=== PATIENT | female | born 1950 | race Caucasian/White ===

== ENCOUNTER 2017-02-19 16:18 | Inpatient (IN) | payer MEDICARE, OTHER ==
[~2017-02-19] VITALS: Ht 167.6 cm; Wt 87.7 kg
--- NOTE | ~2017-02-19 | OR ---
PATIENT'S NAME: DEBORAH MARIA [facility] AGE: 67 Y [address] ROOM: [address] [place], [place] [address] LOCATION: GPCU ADMIT DATE: 02/19/2017 OR/Procedure Report DISCHARGE DATE: 03/03/2017 FAMILY PHYSICIAN: Ken Shankar MD ATTENDING PHYSICIAN: Guillaume Munguia SURGEON: Adrian Handy DO CARDIO TECH: DATE OF PROCEDURE: 02/27/2017 PREOPERATIVE DIAGNOSIS: Loculated hemothorax status post trauma. POSTOPERATIVE DIAGNOSIS: Loculated hemothorax status post trauma with possible empyema. PROCEDURE PERFORMED: Left thoracoscopy with conversion to left thoracotomy with decortication of left lower lobe. BRIEF HISTORY: Mrs. Maria is a 67-year-old white female who fell from the ladder on 02/19. She has broken multiple ribs, and at the time of the trauma, had a hemopneumothorax. A chest tube was placed. This has since been removed and then replaced again for what was felt to be residual hemothorax. This chest tube has not drained any fluid. Yet, there are obvious changes on the x- ray concerning for hemothorax. Dr. Sanderson and I have discussed this and felt it to be probably a loculated versus clotted hemothorax, and she has been brought to the operative suite today for evacuation of this. DESCRIPTION OF PROCEDURE: She was intubated with a dual-lumen endotracheal tube, placed in the lateral decubitus position for left thoracoscopy. Previous chest tube was removed prior to sterilely prepping and draping the area. She was then sterilely prepped and draped without difficulty. A new incision was created, and we entered the pleural space under direct vision. Finger sweep did yield significant adhesions, most of which we were able to break up with blunt dissection. Thoracoscope was placed. A thickened amount of somewhat cloudy and bloody fluid was encountered. Specimen was sent for culture. Dense adhesive process was ongoing, and I could not clear this with accessory instrumentation. Therefore, I proceeded with creating a thoracotomy incision approximately 2 fingerbreadths below the scapular tip and dissecting down through the muscular layers with electrocautery. We entered the pleural space in the fifth intercostal space. Multiple rib fractures were encountered and palpated. There was dense trapping of the left lower lobe. This was freed with decortication. A pocket of fluid again was encountered posteriorly. Both fluid and peel were sent for microbiologic and histologic sampling. The lower lobe was freed entirely and had much better expansion. Limited decortication of the upper lobe was also carried out at the lingular segment. Copious amounts of saline irrigation were used to irrigate the PATIENT'S NAME: DEBORAH MARIA [facility] AGE: 67 Y [address] ROOM: [place] [address] LOCATION: GPCU ADMIT DATE: 02/19/2017 OR/Procedure Report DISCHARGE DATE: 03/03/2017 FAMILY PHYSICIAN: Ken Shankar MD ATTENDING PHYSICIAN: Guillaume Munguia pleural space. Two chest tubes were brought through separate stab incisions and secured to the chest wall. The intercostal incision was then closed with 3 [id number] #1 Ethibond. Muscular layers closed with running 0 Vicryl, fascia with 2-0 Vicryl, and skin with 4-0 Monocryl. The patient tolerated the procedure well and was extubated and transferred to the recovery room in stable condition. DO MELISSA FRAZIER/mc /[id number] d: 03/06/17 1208 t: 03/07/17 1203, OPERATIVE SUMMARY
--- NOTE | ~2017-02-19 | OR ---
PATIENT'S NAME: DEBORAH SINGH [facility] AGE: 67 Y [address] ROOM: [place] [address] LOCATION: [facility] ADMIT DATE: 02/19/2017 OR/Procedure Report DISCHARGE DATE: FAMILY PHYSICIAN: DAKOTA MILLARD MD ATTENDING PHYSICIAN: Guillaume MUNGUIA SURGEON: Guillaume Munguia MD FIELD CONSULTANT: DATE OF PROCEDURE: 02/19/2017 PREOPERATIVE DIAGNOSIS: Left tension pneumothorax. POSTOPERATIVE DIAGNOSIS: Left tension pneumothorax. PROCEDURE PERFORMED: Insertion of chest tube. ANESTHESIA: Lidocaine 2% without epinephrine. INDICATION: The patient is a 67-year-old female who was up on a ladder when she fell, resulting in multiple broken ribs and a left tension pneumothorax. The tension pneumothorax was approximately 20%. The patient had some drop in her saturations as well requiring oxygen, and that pushed me toward the decision that a chest tube should be inserted. DESCRIPTION OF PROCEDURE: Risks and benefits were discussed with the patient, and consent was obtained. The procedure and sufficient anesthesia was obtained. sedation was obtained with Versed and morphine. The left chest was prepped and draped in the usual sterile fashion. 1% lidocaine without epinephrine was infused. An incision was made over the fifth intercostal space just below the rib. The clamp was used to dissect into the subcutaneous tissue, and the chest wall was entered without difficulty. A gush of air was immediately evacuated with some minor small amount of blood. A 20- Singaporean chest tube was inserted without difficulty and secured in place using 0 nylon suture. The chest tube was then draped with Xeroform gauze followed by a sterile gauze to protect this procedure. The patient's procedure was without complication. The patient tolerated well. A postprocedure chest x- ray revealed it to be in good position. GUILLAUME MUNGUIA MD CC/modl PATIENT'S NAME: DEBORAH SINGH [facility] AGE: 67 Y [address] ROOM: [place] [address] LOCATION: [facility] ADMIT DATE: 02/19/2017 OR/Procedure Report DISCHARGE DATE: FAMILY PHYSICIAN: DAKOTA MILLARD MD ATTENDING PHYSICIAN: Guillaume MUNGUIA /[id number] d: 02/20/17 1629 t: 03/26/17 1525, OPERATIVE SUMMARY
--- NOTE | ~2017-02-19 | HP ---
PATIENT'S NAME: DEBORAH SINGH [facility] AGE: 67 Y [address] ROOM: [place] [address] LOCATION: GPCU ADMIT DATE: 02/19/2017 History & Physical DISCHARGE DATE: 03/03/2017 FAMILY PHYSICIAN: Ken Shankar MD ATTENDING PHYSICIAN: Guillaume Munguia DATE OF SERVICE: 1. Hemopneumothorax. HISTORY: The patient is a 67-year-old female, who was working on a ladder trimming some branches from a tree, when apparently she cut one of the branches that she was using to keep her balance. She then fell landing on her left side. She denied any loss of consciousness. She presented hemodynamically stable, complaining of left-sided chest pain. PAST MEDICAL HISTORY: Significant for hypertension and hypercholesterolemia as well as hypokalemia. PAST SURGERIES: Significant for some surgery on her left heel. ALLERGIES: TO SULFA DRUGS. SOCIAL HISTORY: She does drink alcohol socially. She denies smoking or drug abuse. PHYSICAL EXAMINATION: VITAL SIGNS: Blood pressure of 170/74, heart rate of 70, respirations of 20, and saturating 93% on room air. GENERAL: Well developed and well nourished, mildly overweight female, in no acute distress complaining of left-sided chest pain. RESPIRATORY: Her lung sounds were clear bilaterally. HEART: Regular rate and rhythm. ABDOMEN: Soft, nondistended, and nontender. EXTREMITIES: Warm. Pulses are intact. NEUROLOGICAL: Sensory and motor were intact. SKIN: Dry and pink. LABORATORY VALUES: White blood cell count was 9.7, hemoglobin was 13.5, hematocrit was 39.5, and platelet count was 221,000. Sodium of 139, potassium of 4.0, chloride of 104, PATIENT'S NAME: DEBORAH SINGH [facility] AGE: 67 Y [address] ROOM: [place] [address] LOCATION: GPCU ADMIT DATE: 02/19/2017 History & Physical DISCHARGE DATE: 03/03/2017 FAMILY PHYSICIAN: Ken Shankar MD ATTENDING PHYSICIAN: Guillaume Munguia CO2 of 31, creatinine of 0.8, BUN of 22, calcium of 8.4, glucose of 115, anion gap of 8.0, alkaline phosphatase of 71, AST of 27, and ALT of 28. RADIOLOGICAL STUDIES: Chest x-ray showed posterior rib fractures on the left of ribs 3 through 7. A left apical pneumothorax was also noted. There was also a patchy opacity in the left lungs with pulmonary contusion on the left side as well. A CAT scan of the chest also was done showing again posterior rib fractures of ribs on left side from 3 to 7, a left pulmonary contusion, as well as a left pneumothorax. ASSESSMENT AND PLAN: A 67-year-old female, status post a fall. She denies any loss of consciousness, but the radiologic studies are consistent with multiple rib fractures on the left side, pulmonary contusion, as well as a significant left pneumothorax. Because of the size of the left pneumothorax, plan was to place a left chest tube. During the course of the evaluation, the patient's saturations started to drop as well, confirming the need for a chest tube. The plan is that the patient will be admitted for further management, pain control, and further evaluation. Her stay is expected to be greater than two midnights. MD ESTEFANIA CARRERO/mc /[id number] D: [id number] T: [id number] HISTORY & PHYSICAL
--- NOTE | ~2017-02-19 | DS ---
PATIENT'S NAME: DEBORAH SINGH [facility] AGE: 67 Y [address] ROOM: [address] [place], [place] [address] LOCATION: GPCU ADMIT DATE: 02/19/2017 Discharge Summary DISCHARGE DATE: 03/03/2017 FAMILY PHYSICIAN: Ken Shankar MD ATTENDING PHYSICIAN: Guillaume Munguia FINAL/DISCHARGE DIAGNOSES: 1. Fall. 2. Multiple left rib fractures. 3. Hemopneumothorax. 4. Left pulmonary peel and recurrent hemothorax. PROCEDURES PERFORMED: 1. Left thoracostomy tube placement x2. 2. Left video-assisted thoracoscopy with conversion to thoracotomy for decortication of pulmonary peel. HOSPITAL COURSE: The patient is a pleasant, 67-year-old young lady, who was working on a ladder fell approximately 12 feet, landed on her left hemithorax, sustaining multiple rib fractures, pulmonary contusion, and hemopneumothorax. Local surgeon, Dr. Munguia evaluated for the trauma program and admitted. A left thoracostomy tube was placed on the day of admission. The patient had IV and oral analgesics, was placed on DVT prophylaxis. She had physical therapy for mobilization. By post-traumatic day #3, her chest x-ray looks stable. She had minimal left thoracostomy tube output, and her chest tube was removed on day #4. Her chest x-ray showed improvement of aeration in the right lower field and left lower lung. However, over the ensuing three days, she had increased oxygen requirements and persistent respiratory distress. Repeat x- ray showed reaccumulation of hemothorax. A re-insertion of a left thoracostomy tube was performed, but during insertion pulmonary peel with a lot of adhesions was expected. Dr. Handy, thoracic surgeon consulted and he agreed with the recommendation for a VATS procedure that was performed, and converted to a mini thoracotomy for the completion of the evacuation of the peel. Postoperatively, she improved daily. Her thoracostomy tubes were removed on 03/02/2017. By the day of discharge, she was afebrile. She was off supplemental oxygen, was pain controlled with Percocet though pretty constant around the clock. DISPOSITION: The patient was felt ready for discharge with Percocet 1 to 2 every 4 hours p.r.n. pain, quantity of 40. She will follow up with Dr. Handy post left thoracotomy. She was instructed to call with increased respiratory distress. She was discharged in good condition. PATIENT'S NAME: DEBORAH SINGH [facility] AGE: 67 Y [address] ROOM: [address] [place] [id number] [facility] ADMIT DATE: 02/19/2017 Discharge Summary DISCHARGE DATE: 03/03/2017 FAMILY PHYSICIAN: Ken Shankar MD ATTENDING PHYSICIAN: Guillaume Munguia DMITRY BALLESTEROS MD WTKeeley/modl /[id number] d: 03/03/172018 t: 03/16/17 0903, DISCHARGE SUMMARY
--- NOTE | ~2017-02-19 | ER ---
PATIENT'S NAME: DEBORAH SINGH [facility] AGE: 67 Y [address] ROOM: [place] [address] LOCATION: GPCU ADMIT DATE: 02/19/2017 ER/Outpatient Report DISCHARGE DATE: FAMILY PHYSICIAN: DAKOTA MILLARD MD ATTENDING PHYSICIAN: Guillaume ALMONTE TIME SEEN: 1620 hours. HISTORY OF PRESENT ILLNESS: The patient is a 67-year-old female who was brought in by EMS from her home. The patient was on a ladder trimming trees when she fell. She said she landed on her left side. She denied any loss of consciousness. She complains of pain in the left scapula area. ALLERGIES: SULFA. CURRENT MEDICATIONS: See her copied list. MEDICAL HISTORY: Hypothyroidism, hypertension, and hyperlipidemia. SURGERIES: Left heel surgery. SOCIAL HISTORY: She is . Nonsmoker. At least 1 alcohol daily. REVIEW OF SYSTEMS: GENERAL: Health good for age. HEAD AND EENT: She denied any headache or neck pain. RESPIRATORY: No shortness of breath. No hemoptysis or cough. CARDIOVASCULAR: Denies any anterior chest pain. She does complain of some pain in her left posterior chest wall. GASTROINTESTINAL: No abdominal pain. No nausea. No vomiting. GENITOURINARY: No incontinence. MUSCULOSKELETAL: Complains of pain over the left scapula. Denies any hip, knee, or wrist pain. NEUROLOGIC: No confusion or loss of consciousness. PHYSICAL EXAMINATION: VITAL SIGNS: Initial blood pressure was 170/74, temperature is 97.9, respiratory rate 20, pulse 78, and O2 saturations 93%. PATIENT'S NAME: DEBORAH SINGH [facility] AGE: 67 Y [address] ROOM: [address] [address] LOCATION: GPCU ADMIT DATE: 02/19/2017 ER/Outpatient Report DISCHARGE DATE: FAMILY PHYSICIAN: DAKOTA MILLARD MD ATTENDING PHYSICIAN: Guillaume ALMONTE GENERAL APPEARANCE: White female. She is well oriented. She was given 100 of fentanyl prior to arrival to the emergency room. HEENT: Head: There was no scalp tenderness or swelling. Eyes: Pupils were equal and reactive to light. Nose: No deformity noted. NECK: No central cervical tenderness. Range of motion appeared normal. LUNGS: Peripherally sounded clear. Chest, there was some tenderness just lateral to the scapula. There is no significant bruising or swelling noted. ABDOMEN: Soft, nontender. No guarding. EXTREMITIES: She had full range of motion in her lower extremities. There was no pain with internal or external rotation of her hip. Left shoulder range of motion appeared grossly normal. DIAGNOSTIC DATA: Plain films, chest, did show some evidence of fractured ribs at 3 and 4. A rib detail also reviewed showed fractures at 3, 4, 5, possible 6. There is a question of a small pneumothorax present on the left side. CT with IV contrast also verified fractures at 3, 4, 5, 6, and 7, and there was a small hemopneumothorax. LABORATORY WORK: Her CBC and her CMS were unremarkable. ASSESSMENT: 1. Fall from ladder. 2. Fractured ribs at 3, 4, 5, 6, and 7. 3. Small Lt. hemopneumothorax. PLAN: The patient was referred to the trauma surgeon, Dr. Almonte. Please refer to his dictation. TREATMENT IN THE EMERGENCY ROOM: The patient was given fentanyl for pain and also some Dilaudid quarter of a milligram IV. PATI GENAO FOR DO TG FORTE/modl /[id number] d: 02/19/172209 t: 03/05/172112, OUTPATIENT REPORT
--- NOTE | ~2017-02-19 | OR ---
PATIENT'S NAME: DEBORAH SINGH [facility] AGE: 67 Y [address] ROOM: [place] [address] LOCATION: GPCU ADMIT DATE: 02/19/2017 OR/Procedure Report DISCHARGE DATE: FAMILY PHYSICIAN: DAKOTA MILLARD MD ATTENDING PHYSICIAN: Guillaume ALMONTE SURGEON: Khoa Ballesteros MD DIP DYER: DATE OF PROCEDURE: 02/26/2017 PREOPERATIVE DIAGNOSES: 1. History of fall with multiple left rib fractures, history of pneumohemothorax on 02/19/2017. 2. Persistent hypoxia. 3. Recurrent right hemothorax versus hematoma. POSTOPERATIVE DIAGNOSES: 1. History of fall with multiple left rib fractures, history of pneumohemothorax on 02/19/2017. 2. Persistent hypoxia. 3. Recurrent right hemothorax versus hematoma. PROCEDURE PERFORMED: Insertion of a 32-English left thoracostomy tube. ANESTHESIA: 20 mL 0.5% Marcaine, 2 mg IV morphine. SPECIMEN: None. INDICATION: The patient is a 67-year-old young lady approximately one week ago was admitted to the hospital because of a trauma post fall. The surgeon at that time placed a thoracostomy tube. It was subsequently removed on . Sunday, on 02/23/2017, the chest x-ray showed improvement, but today with hypoxia still requiring 2 L nasal cannula oxygen. A repeat chest x- ray was performed for decreased breath sounds left base and Dr. Yates thought it was a recurrent hemo or pneumothorax, possible hematoma. Recommended thoracostomy tube. DESCRIPTION OF PROCEDURE: After informed consent, the patient in her hospital room, was placed in supine position, and her left lateral chest was prepped and draped into a sterile field. We went just above the anterior axillary line of the sixth intercostal space. We injected local anesthetic. I told her about the procedure and prepped and draped into a sterile field. We then made a small incision over probably the 6th intercostal space, carried it down, and dissected bluntly to the intercostal space. We bluntly went through it. We placed a digit into the peritoneal cavity, where it was felt like we were right above the diaphragm, there was pleural thickening but we were by PATIENT'S NAME: DEBORAH SINGH [facility] AGE: 67 Y [address] ROOM: [address] [address] LOCATION: GPCU ADMIT DATE: 02/19/2017 OR/Procedure Report DISCHARGE DATE: FAMILY PHYSICIAN: DAKOTA MILLARD MD ATTENDING PHYSICIAN: Guillauem LAMONTE the previous chest tube insertion site. I could palpate the diaphragm below and pericardium to the medial aspect. I was able to create a small window towards the posterior region for dependent drainage and placed a thoracostomy tube but met resistance after set at 6 cm. Therefore, I just left it in that place. I could see the tidal volume. I left it at 6 cm and tied it down with 2-0 Prolene. We had minimal serosanguineous output. Post placement x-ray shows low position of the tube in lower hemithorax but still opacification. PLAN: I suspect we are dealing with hematoma, possible peel around the lower lung field. I spoke with Dr. Handy, thoracic surgeon and he agrees with the VATS procedure tomorrow. The patient tolerated procedure well. KHOA BALLESTEROS MD WTS/modl /[id number] d: 02/27/17 0011 t: 03/16/17 0901, OPERATIVE SUMMARY
[2017-02-19 17:22] LABS: BASOPHIL # 0.1 K/uL (0.0-0.2); BASOPHIL % 0.7 %; EOSINOPHIL # 0.2 K/uL (0.0-0.5); EOSINOPHIL % 1.9 %; HEMATOCRIT 39.5 % (33.0-46.0); HEMOGLOBIN 13.5 g/dL (10.0-15.0); IMMATURE GRANULOCYTE % 0.4 %; LYMPHOCYTE # 1.8 K/uL (0.8-4.0); LYMPHOCYTE % 18.2 %; MCH 30.8 pg (27.0-34.0); MCHC 34.2 gm/dL (32.0-36.5); MCV 90.2 fl (83.0-98.0); MONOCYTE # 0.5 K/uL (0.0-1.0); MONOCYTE % 5.3 %; MPV 10.1 fl (9.4-12.4); NEUTROPHIL # (ANC) 7.1 K/uL (1.8-7.8); NEUTROPHIL % 73.5 %; NRBC % 0 /100WBC (0-0.00); PLATELET COUNT 221 K/uL (150-450); RBC 4.38 M/uL (3.50-5.50); RDW-CV 12.5 % (11.9-14.6); WBC 9.7 K/uL (4.0-11.0)
[2017-02-19 17:38] LABS: ALBUMIN 3.6 gm/dL (3.5-5.0); ALK PHOS 71 IU/L (33-138); ALT 28 IU/L (12-78); AST 27 IU/L (10-40); BLOOD UREA NITROGEN 22 mg/dL (6-24); CALCIUM 8.4 mg/dL (8.5-10.5); CHLORIDE 104 mMol/L (96-110); CO2 31 mMol/L (22-32); CREATININE 0.8 mg/dL (0.5-1.1); ESTIMATED GFR (MDRD EQUATION) > 60; SODIUM 139 mMol/L (135-145); TOTAL BILIRUBIN 0.5 mg/dL (0.0-1.5)
[2017-02-19] MEDS ORDERED: EFFEXOR XR75 MG PO (21:13)
[2017-02-19] MEDS ORDERED: LIPITOR20 M1 PO (21:14)
[2017-02-19] MEDS ORDERED: POTASSIUM CHLO10 MEQ PO (21:14)
[2017-02-19] MEDS ORDERED: DYAZIDE 37.5-21 EACH PO (21:15)
[2017-02-19] MEDS ORDERED: LEVOTHROID (S150 MCG PO (21:15)
[2017-02-20 04:27] LABS: BASOPHIL # 0.1 K/uL (0.0-0.2); BASOPHIL % 0.6 %; EOSINOPHIL % 0.5 %; HEMATOCRIT 37.5 % (33.0-46.0); HEMOGLOBIN 12.5 g/dL (10.0-15.0); IMMATURE GRANULOCYTE % 0.3 %; LYMPHOCYTE # 1.5 K/uL (0.8-4.0); LYMPHOCYTE % 19.4 %; MCHC 33.3 gm/dL (32.0-36.5); MCV 90.1 fl (83.0-98.0); MONOCYTE # 0.5 K/uL (0.0-1.0); MONOCYTE % 6.7 %; MPV 10.4 fl (9.4-12.4); NEUTROPHIL # (ANC) 5.6 K/uL (1.8-7.8); NEUTROPHIL % 72.5 %; NRBC % 0 /100WBC (0-0.00); PLATELET COUNT 208 K/uL (150-450); RBC 4.16 M/uL (3.50-5.50); RDW-CV 12.8 % (11.9-14.6); WBC 7.7 K/uL (4.0-11.0)
[2017-02-20 04:50] LABS: ALBUMIN 3.1 gm/dL (3.5-5.0); ALK PHOS 67 IU/L (33-138); ALT 24 IU/L (12-78); ANION GAP 8.8 (10.0-19.0); AST 27 IU/L (10-40); BLOOD UREA NITROGEN 23 mg/dL (6-24); CALCIUM 8.3 mg/dL (8.5-10.5); CHLORIDE 102 mMol/L (96-110); CO2 31 mMol/L (22-32); CREATININE 0.8 mg/dL (0.5-1.1); ESTIMATED GFR (MDRD EQUATION) > 60; POTASSIUM 3.8 mMol/L (3.7-5.1); SODIUM 138 mMol/L (135-145); TOTAL BILIRUBIN 0.5 mg/dL (0.0-1.5); TOTAL PROTEIN 6.3 g/dL (6.0-8.4)
[2017-02-20 19:09] LABS: CPK 455 IU/L (21-215)
[2017-02-27 10:23] LABS: BASOPHIL # 0.1 K/uL (0.0-0.2); BASOPHIL % 0.4 %; EOSINOPHIL # 0.1 K/uL (0.0-0.5); HEMATOCRIT 34.7 % (33.0-46.0); HEMOGLOBIN 11.7 g/dL (10.0-15.0); IMMATURE GRANULOCYTE # 0.1 K/uL (0.0-0.3); IMMATURE GRANULOCYTE % 0.5 %; LYMPHOCYTE # 0.9 K/uL (0.8-4.0); LYMPHOCYTE % 7.7 %; MCH 30.9 pg (27.0-34.0); MCHC 33.7 gm/dL (32.0-36.5); MCV 91.6 fl (83.0-98.0); MONOCYTE # 1.1 K/uL (0.0-1.0); MONOCYTE % 9.8 %; MPV 9.5 fl (9.4-12.4); NEUTROPHIL # (ANC) 9.3 K/uL (1.8-7.8); NEUTROPHIL % 80.6 %; NRBC % 0 /100WBC (0-0.00); PLATELET COUNT 281 K/uL (150-450); RBC 3.79 M/uL (3.50-5.50); RDW-CV 12.8 % (11.9-14.6); WBC 11.5 K/uL (4.0-11.0)
[2017-02-27 10:33] LABS: INR - (THERAPEUTIC) 0.95 (0.92-1.07)
[2017-02-27 10:41] LABS: ALBUMIN 2.4 gm/dL (3.5-5.0); BLOOD UREA NITROGEN 15 mg/dL (6-24); CALCIUM 8.5 mg/dL (8.5-10.5); CHLORIDE 92 mMol/L (96-110); CO2 34 mMol/L (22-32); CREATININE 0.7 mg/dL (0.5-1.1); ESTIMATED GFR (MDRD EQUATION) > 60; PHOSPHORUS 3.8 mg/dL (2.5-4.9); SODIUM 133 mMol/L (135-145)
[2017-02-28 01:55] LABS: BILIRUBIN URINE NEGATIVE (NEGATIVE); BLOOD URINE 150 /UL (NEGATIVE); COLOR URINE YELLOW (YELLOW); GLUCOSE URINE NEGATIVE (NEGATIVE); KETONE URINE 15 mg/dL (NEGATIVE); LEUKOCYTES URINE NEGATIVE /UL (NEGATIVE); NITRITE URINE NEGATIVE (NEGATIVE); PROTEIN URINE 30 mg/dL (NEGATIVE); TURBIDITY URINE CLEAR (CLEAR); UROBILINOGEN URINE NORMAL (NORMAL)
[2017-02-28 02:07] LABS: BACTERIA URINE RARE (NEGATIVE); WBC URINE NEGATIVE #/HPF (NEGATIVE)
[2017-02-28 04:15] LABS: BASOPHIL % 0.1 %; HEMATOCRIT 34.7 % (33.0-46.0); HEMOGLOBIN 11.5 g/dL (10.0-15.0); IMMATURE GRANULOCYTE # 0.1 K/uL (0.0-0.3); IMMATURE GRANULOCYTE % 0.6 %; LYMPHOCYTE # 0.7 K/uL (0.8-4.0); LYMPHOCYTE % 4.8 %; MCHC 33.1 gm/dL (32.0-36.5); MCV 90.6 fl (83.0-98.0); MONOCYTE # 1.2 K/uL (0.0-1.0); MONOCYTE % 8.5 %; MPV 9.7 fl (9.4-12.4); NRBC % 0 /100WBC (0-0.00); PLATELET COUNT 335 K/uL (150-450); RBC 3.83 M/uL (3.50-5.50)
[2017-02-28 04:31] LABS: ANION GAP 12.7 (10.0-19.0); BLOOD UREA NITROGEN 15 mg/dL (6-24); CALCIUM 7.7 mg/dL (8.5-10.5); CHLORIDE 91 mMol/L (96-110); CO2 34 mMol/L (22-32); CREATININE 0.8 mg/dL (0.5-1.1); ESTIMATED GFR (MDRD EQUATION) > 60; PHOSPHORUS 3.7 mg/dL (2.5-4.9); POTASSIUM 3.7 mMol/L (3.7-5.1); SODIUM 134 mMol/L (135-145)
[2017-03-01 03:58] LABS: HEMOGLOBIN 10.2 g/dL (10.0-15.0); MCH 30.2 pg (27.0-34.0); MCHC 32.9 gm/dL (32.0-36.5); MCV 91.7 fl (83.0-98.0); MPV 9.7 fl (9.4-12.4); RBC 3.38 M/uL (3.50-5.50); RDW-CV 13.1 % (11.9-14.6); WBC 12.8 K/uL (4.0-11.0)
[2017-03-01 04:10] LABS: BLOOD UREA NITROGEN 21 mg/dL (6-24); CHLORIDE 92 mMol/L (96-110); CREATININE 0.7 mg/dL (0.5-1.1); ESTIMATED GFR (MDRD EQUATION) > 60; PHOSPHORUS 2.9 mg/dL (2.5-4.9); SODIUM 132 mMol/L (135-145)
[2017-03-01 04:11] LABS: CO2 37 mMol/L (22-32)
[2017-03-03 04:41] LABS: HEMATOCRIT 31.5 % (33.0-46.0); HEMOGLOBIN 10.3 g/dL (10.0-15.0); MCH 29.6 pg (27.0-34.0); MCHC 32.7 gm/dL (32.0-36.5); MCV 90.5 fl (83.0-98.0); MPV 9.5 fl (9.4-12.4); RBC 3.48 M/uL (3.50-5.50); RDW-CV 13.2 % (11.9-14.6); WBC 9.7 K/uL (4.0-11.0)
[2017-03-03 04:50] LABS: PLATELET COUNT 416 K/uL (150-450)
[2017-03-03 05:33] LABS: ABSOLUTE NEUTROPHIL CT (ANC) 5.7 K/uL (1.8-7.8); BANDED NEUTROPHIL # 1.3 K/uL (0.0-0.1); BANDED NEUTROPHILS % 13 %; LYMPHOCYTE # 2.6 K/uL (0.8-4.0); LYMPHOCYTE % 27 %; MONOCYTE # 0.3 K/uL (0.0-1.0); SEGMENTED NEUTROPHIL # 4.5 K/uL (1.8-7.8); SEGMENTED NEUTROPHIL % 46 %
[2017-03-03] MEDS ORDERED: COREG 3.1253.125 MG PO (11:17)
[2017-03-03] MEDS ORDERED: COLACE100 MG PO (11:18)
[2017-03-03] MEDS ORDERED: LEVAQUIN500 MG PO (11:21)
[2017-03-03] MEDS ORDERED: K-TAB 10MEQ10 MEQ PO (11:22)
[2017-03-03] MEDS ORDERED: MOTRIN800 MG PO (11:23)
[2017-03-03] MEDS ORDERED: PERCOCET 5-3251 EACH PO (11:24)
[2017-03-03] MEDS ORDERED: LASIX40 MG PO (12:06)
[2017-03-03] MEDS ORDERED: AMARYL2 MG PO (12:08)
[2017-03-03] MEDS ORDERED: TRESIBA FL100 UNIT/1 SUB-Q (12:10)
== END 2017-03-03 12:10 | disposition disaster alternative care site (69) | DRG 164 ==
LOC: GACC 16:18 → GPCU 19:41
PROVIDERS: Family Medicine; Nurse Practitioner Women's Health; Physician Assistant Medical; Thoracic Surgery (Cardiothoracic Vascular Surgery); ADMIT Surgery
PROC: 0W9B30Z Drainage of Left Pleural Cavity with Drainage Device, Percutaneous Approach (ICD-10-PCS; principal; 2017-02-19)
PROC: 0W9B30Z Drainage of Left Pleural Cavity with Drainage Device, Percutaneous Approach (ICD-10-PCS; 2017-02-26)
PROC: 0BDP0ZZ Extraction of Left Pleura, Open Approach (ICD-10-PCS; 2017-02-27)
DX: S27.2XXA Traumatic hemopneumothorax, initial encounter (principal); S22.42XA Multiple fractures of ribs, left side, initial encounter for closed fracture; E03.9 Hypothyroidism, unspecified; R09.02 Hypoxemia; I10 Essential (primary) hypertension; E78.5 Hyperlipidemia, unspecified; W11.XXXA Fall on and from ladder, initial encounter; Y93.89 Activity, other specified
CPT/HCPCS: G0424; J0690; J1100; J1170; J1644; J1650; J1885; J1956; J2001; J2250; J2270; J2405; J3010; J7030; J7050; J7120; Q9967

== ENCOUNTER → 2017-02-19 | Outpatient (CLI) | payer MEDICARE, OTHER ==
[~2017-02-19] MED LIST: AMARYL2 MG PO; COLACE100 MG PO; COREG 3.1253.125 MG PO; DYAZIDE 37.5-21 EACH PO; EFFEXOR XR75 MG PO; K-TAB 10MEQ10 MEQ PO; LASIX40 MG PO; LEVAQUIN500 MG PO; LEVOTHROID (S150 MCG PO; LIPITOR20 M1 PO; MOTRIN800 MG PO; PERCOCET 5-3251 EACH PO; POTASSIUM CHLO10 MEQ PO; TRESIBA FL100 UNIT/1 SUB-Q
== END | disposition disaster alternative care site (69) ==
LOC: GAMB 15:43
DX: M25.512 Pain in left shoulder (principal); S29.9XXA Unspecified injury of thorax, initial encounter; M21.922 Unspecified acquired deformity of left upper arm; M79.602 Pain in left arm; M25.511 Pain in right shoulder; M54.9 Dorsalgia, unspecified; R06.00 Dyspnea, unspecified; E03.9 Hypothyroidism, unspecified; E78.5 Hyperlipidemia, unspecified; Z79.899 Other long term (current) drug therapy; Z88.2 Allergy status to sulfonamides; W11.XXXA Fall on and from ladder, initial encounter
CPT/HCPCS: A0425; A0427; J3010